=== PATIENT | female | born 1935 | race African-American/Black ===

== ENCOUNTER 2022-12-06 10:44 | Emergency (ER) | payer OTHER ==
[~2022-12-06] VITALS: Ht 165.1 cm; Wt 73.0 kg
[2022-12-06 10:46] VITALS: O2SAT 100
[2022-12-06 11:50] LABS: BASOPHILS % 0.9 % (0.0-2.0); EOSINOPHILS % 0.7 % (0.0-5.0); HEMATOCRIT. 36.4 % (36.0-48.0); HEMOGLOBIN. 12.7 g/dL (12.0-16.0); MEAN CORPUSCULAR VOLUME 82.9 fL (81.0-99.0); MEAN PLATELET VOLUME 7.3 fl (7.4-10.4); NEUTROPHILS % 75.4 % (40.0-76.0); PLATELET 243 x1000/uL (130-400); RED BLOOD CELL COUNT 4.39 mill/uL (4.2-5.4); RED CELL DISTRIBUTION WIDTH 16.2 % (11.6-14.6)
[2022-12-06 12:00] LABS: CHLORIDE 107 mEq/L (98-107)
[2022-12-06 12:01] LABS: D-DIMER 0.28 mg/L FEU (<0.50); INR 1.2; PROTHROMBIN TIME 12.6 sec (9.6-11.0)
[2022-12-06 14:51] VITALS: BP 159/82; PULSE 81; RESP 15; TEMP 97.6
== END 2022-12-06 16:11 | disposition home or self-care (01) ==
LOC: ER 10:44 → CANBEDREQ 14:46 → ER 16:11
DX: I48.91 Unspecified atrial fibrillation (principal); I45.10 Unspecified right bundle-branch block; E11.9 Type 2 diabetes mellitus without complications; I10 Essential (primary) hypertension
CPT/HCPCS: 36415; 71045; 80053; 83880; 84484; 85025; 85379; 93005; 99285